=== PATIENT | male | born 1960 | race Caucasian/White ===

== ENCOUNTER 2020-08-25 20:45 | Emergency (ER) | payer MEDICARE, MEDICAID ==
--- NOTE | 2020-08-25 21:16 | XRAY Report ---
PROCEDURE: Chest 1 View X-Ray INDICATIONS: Chest Pain TECHNIQUE: One view of the chest was acquired. COMPARISON: Chest radiographs 06/04/2013 FINDINGS: Surgical changes and devices: None. Lungs and pleura: No pleural effusions or pneumothorax. Mildly increased lung markings at the medial lung bases bilaterally are nonspecific, but could represent an early or developing pneumonia in the appropriate clinical context. Mediastinum: Mediastinal contours appear normal. Heart size is normal. Bones and chest wall: No suspicious bony lesions. Overlying soft tissues appear unremarkable. Dege nerative changes are seen in the spine. IMPRESSION: Increased lung markings in the medial and bases could represent a mild or developing pneumonia or asp iration in the appropriate clinical setting. Reviewed by: Good Villavicencio MD on 08/25/2020 9:15 PM PDT Approved by: Good Villavicencio MD on 08/25/2020 9:15 PM PDT Station ID: [id number]
[2020-08-25 21:17] LABS: BASOPHILS % (AUTO) 0.5 %; EOSINOPHILS # (AUTO) 0.1 10^3/uL (0.0-0.7); EOSINOPHILS % (AUTO) 1.4 %; HCT - HEMATOCRIT 41.5 % (42.0-52.0); HGB - HEMOGLOBIN 13.7 g/dL (14.0-18.0); LYMPHOCYTES # (AUTO) 2.1 10^3/uL (1.5-3.5); LYMPHOCYTES % (AUTO) 33.1 %; MEAN CORPUSCULAR VOLUME 84.7 fL (80.0-94.0); MEAN PLATELET VOLUME 8.9 fL (7.4-11.4); MONOCYTES # (AUTO) 0.6 10^3/uL (0.0-1.0); NEUTROPHILS # (AUTO) 3.6 10^3/uL (1.5-6.6); NEUTROPHILS % (AUTO) 55.5 %; PLT - PLATELET COUNT 221 10^3/uL (130-450); RED CELL DISTRIBUTION WIDTH 13.2 % (12.0-15.0); WHITE BLOOD COUNT 6.4 x10^3/uL (4.8-10.8)
--- NOTE | 2020-08-25 21:25 | ED Physician Documentation ---
PD HPI CHEST PAIN - Stated complaint Stated Complaint: CP - Chief complaint Chief Complaint: Cardiac - History obtained from History obtained from: Patient - History of Present Illness Timing - onset: How many minutes ago (30), Today Timing - onset during: Rest Timing - details: Abrupt onset Pain level max: 10 Pain level now: 10 Quality: Pain Location: Left chest Radiation: Other (does not radiate) Improved by: Nothing Worsened by: Other (no exacerbating factors) Associated symptoms: No: Shortness of air, Diaphoresis, Nausea, Vomiting, Feeling faint / dizzy Similar symptoms before: Has not had sx before Recently seen: Not recently seen - Additional information Additional information: c/o rapid onset left-sided chest pain, onset 30 minutes ago while at rest at his father's house. Patient is visiting from [place], flew from [place] 1 month ago. He takes lisinopril and metoprolol although he ran out of his metoprolol 3 weeks ago. He says he does not have a cardiac history such as CAD, stents, or CABG. Review of Systems Constitutional: denies: Fever, Chills, Sweats Cardiac: reports: Chest pain / pressure. denies: Palpitations, Pedal edema, Calf pain Respiratory: reports: Reviewed and negative GI: reports: Reviewed and negative : reports: Reviewed and negative Skin: reports: Reviewed and negative Musculoskeletal: reports: Reviewed and negative Neurologic: reports: Reviewed and negative PD PAST MEDICAL HISTORY - Past Medical History Cardiovascular: Hypertension, High cholesterol, Angina Respiratory: None Endocrine/Autoimmune: None GI: Cholelithiasis : None HEENT: None Psych: Depression Musculoskeletal: None Derm: None - Past Surgical History Past Surgical History: Yes General: Cholecystectomy Ortho: Carpal Tunnel surgery - Present Medications Home Medications: Ambulatory Orders Medication Instructions Recorded Confirmed Ibuprofen [Motrin] 800 mg PO Q8H PRN #30 tablet 12/28/12 03/21/15 Metoprolol Succinate [Toprol Xl] 50 mg PO BID 06/04/13 03/21/15 Simvastatin [Zocor] 40 mg PO QPM 06/04/13 03/21/15 Tramadol HCl [Ultram] 50 mg PO DAILY 06/04/13 03/21/15 Valproic Acid [Stavzor] 1,500 mg PO DAILY 06/04/13 03/21/15 lisinopriL [Zestril] 20 mg PO DAILY 06/04/13 03/21/15 Amitriptyline [Elavil] 10 mg PO HS 07/24/13 03/21/15 Aspirin/Dipyridamole [Aggrenox 25 1 each PO BID 07/24/13 03/21/15 mg-200 mg Capsule] Atorvastatin [Lovastatin] 10 mg PO DAILY 07/24/13 03/21/15 Hydrochlorothiazide 25 mg PO DAILY 07/24/13 03/21/15 Omeprazole [PriLOSEC] 20 mg PO DAILY 07/24/13 03/21/15 Potassium Chloride 10 meq PO DAILY 07/24/13 03/21/15 Sertraline [Zoloft] 100 mg PO DAILY 07/24/13 03/21/15 Trazodone HCl 150 mg PO HS 07/24/13 03/21/15 Cyclobenzaprine [Flexeril] 10 mg PO TID PRN #20 tablet 03/14/15 03/21/15 Baclofen 10 mg PO TID PRN #20 tablet 03/21/15 Ketorolac [Toradol] 10 mg PO Q6H PRN #20 tablet 03/21/15 Tizanidine HCl [Zanaflex] 2 mg PO TID 03/21/15 03/21/15 methocarbamoL [Robaxin] 500 mg PO Q6H PRN #25 tablet 03/24/15 predniSONE [Deltasone] 40 mg PO DAILY 5 Days tablet 03/24/15 oxyCODONE/ACET 5/325 [Percocet 5 1 each PO Q4-6H PRN #12 tablet 03/27/15 mg/325 mg] Lidocaine Patch 5% [Lidoderm Patch] 1 each TOP DAILY PRN #10 patch 04/11/15 Metoprolol Tartrate [Lopressor] 50 mg PO BID #30 tablet 08/25/20 lisinopriL [Lisinopril] 10 mg PO DAILY #30 tablet 08/25/20 - Allergies Allergies/Adverse Reactions: Allergies Allergy/AdvReac Type Severity Reaction Status Date / Time paroxetine HCl * [From Paxil] Allergy Mild unknown Verified 08/25/20 20:59 clopidogrel bisulfate * Allergy unknown Verified 08/25/20 20:59 [From Plavix] fluoxetine HCl * AdvReac Intermediate Nausea Verified 08/25/20 20:59 [From Prozac] - Social History Does the pt smoke?: Yes Smoking Status: Current every day smoker Does the pt drink ETOH?: No Does the pt have substance abuse?: No - Immunizations Immunizations are current?: No Immunizations: TDAP >10years/unknown - POLST Patient has POLST: No PD ED PE NORMAL - Vitals Vital signs reviewed: Yes - General General: Alert and oriented X 3, No acute distress, Well developed/nourished - HEENT HEENT: Moist mucous membranes - Cardiac Cardiac: RRR, No murmur, No gallop, No rub - Respiratory Respiratory: No respiratory distress, Clear bilaterally - Abdomen Abdomen: Soft, Non tender - Derm Derm: Normal color, Warm and dry - Extremities Extremities: No edema Results - Vitals Vitals: Oxygen O2 Source Room air - EKG (time done) No standard instances Rate: Rate (enter#) (98) Rhythm: NSR, LAE [place]: Normal Intervals: Normal MS QRS: Normal Ischemia: Normal ST segments Computer interpretation: Disagree with computer (I do not see ST elevations nor depressions) - Labs Labs: Laboratory Tests 08/25/20 08/25/20 08/25/20 21:10 21:10 21:10 WBC 6.4 RBC 4.90 Hgb 13.7 L Hct 41.5 L MCV 84.7 MCH 28.0 MCHC 33.0 RDW 13.2 Plt Count 221 MPV 8.9 Neut # (Auto) 3.6 Lymph # (Auto) 2.1 [place] # (Auto) 0.6 Eos # (Auto) 0.1 Baso # (Auto) 0.0 Absolute Nucleated RBC 0.00 Nucleated RBC % 0.0 D-Dimer Sodium 139 Potassium 3.9 Chloride 102 Carbon Dioxide 28 Anion Gap 9.0 BUN 14 Creatinine 0.7 Estimated GFR (MDRD) 115 Glucose 107 H Calcium 9.0 Total Bilirubin 0.6 AST 22 ALT 23 Alkaline Phosphatase 77 Troponin I High Sens 10.2 Total Protein 7.7 Albumin 4.2 Globulin 3.5 Albumin/Globulin Ratio 1.2 Lipase 33 08/25/20 21:10 WBC RBC Hgb Hct MCV MCH MCHC RDW Plt Count MPV Neut # (Auto) Lymph # (Auto) [place] # (Auto) Eos # (Auto) Baso # (Auto) Absolute Nucleated RBC Nucleated RBC % D-Dimer < 200.0 L Sodium Potassium Chloride Carbon Dioxide Anion Gap BUN Creatinine Estimated GFR (MDRD) Glucose Calcium Total Bilirubin AST ALT Alkaline Phosphatase Troponin I High Sens Total Protein Albumin Globulin Albumin/Globulin Ratio Lipase - Rads (name of study) chest xray Radiology: Prelim report reviewed, See rad report PD MEDICAL DECISION MAKING - ED course Complexity details: reviewed results, re-evaluated patient, considered differential, d/w patient Departure - Departure Disposition: Home, Self Care Clinical Impression: Chest pain Qualifiers: Chest pain type: unspecified Qualified Code(s): R07.9 - Chest pain, unspecified Condition: Good Instructions: ED Chest Pain Atypical Unkn Cause Prescriptions: lisinopriL [Lisinopril] 10 mg PO DAILY #30 tablet Metoprolol Tartrate [Lopressor] 50 mg PO BID #30 tablet Comments: Contact your primary care provider to arrange for next available appointment. Discharge Date/Time: 08/25/20 23:12
[2020-08-25] MEDS ORDERED: KETOROLAC 30 MG/ML VIAL IVP STA (21:37)
[2020-08-25] MEDS ORDERED: METOPROLOL 5 MG/5 ML VIAL IVP STA (21:37)
[2020-08-25 21:38] LABS: ALBUMIN 4.2 g/dL (3.2-5.5); ALBUMIN/GLOBULIN RATIO 1.2 (1.0-2.2); BILIRUBIN,TOTAL 0.6 mg/dL (0.2-1.0); CREATININE 0.7 mg/dL (0.6-1.2); POTASSIUM 3.9 mmol/L (3.5-5.0); TOTAL PROTEIN 7.7 g/dL (6.7-8.2)
[2020-08-25 23:06] VITALS: BP 172/78
== END 2020-08-25 23:12 | disposition home or self-care (01) ==
LOC: ED 20:45
DX: R07.9 Chest pain, unspecified (principal); I10 Essential (primary) hypertension; F17.200 Nicotine dependence, unspecified, uncomplicated
CPT/HCPCS: 36415; 80053; 83690; 84484; 85025; 85379; 93005; 96374; 96375; 99284

== ENCOUNTER 2020-09-03 | Outpatient (CLI) | payer MEDICARE, MEDICAID | END 2020-09-03 23:17 | disposition critical access hospital (66) | CPT/HCPCS: A0425; A0429 ==

== ENCOUNTER 2020-09-03 23:27 | Emergency (ER) | payer MEDICARE, MEDICAID ==
[2020-09-03] MEDS ORDERED: METOPROLOL 5 MG/5 ML VIAL IVP STA (23:46)
[2020-09-03 23:52] LABS: BASOPHILS # (AUTO) 0.1 10^3/uL (0.0-0.1); BASOPHILS % (AUTO) 0.8 %; EOSINOPHILS # (AUTO) 0.2 10^3/uL (0.0-0.7); EOSINOPHILS % (AUTO) 2.3 %; HCT - HEMATOCRIT 40.7 % (42.0-52.0); HGB - HEMOGLOBIN 13.3 g/dL (14.0-18.0); LYMPHOCYTES # (AUTO) 2.6 10^3/uL (1.5-3.5); LYMPHOCYTES % (AUTO) 34.5 %; MEAN CORPUSCULAR HEMOGLOBIN 28.1 pg (27.0-31.0); MEAN CORPUSCULAR HGB CONC 32.7 g/dL (32.0-36.0); MEAN CORPUSCULAR VOLUME 85.9 fL (80.0-94.0); MONOCYTES # (AUTO) 0.8 10^3/uL (0.0-1.0); MONOCYTES % (AUTO) 10.1 %; NEUTROPHILS # (AUTO) 3.9 10^3/uL (1.5-6.6); NEUTROPHILS % (AUTO) 51.9 %; PLT - PLATELET COUNT 197 10^3/uL (130-450); RED BLOOD COUNT 4.74 10^6/uL (4.70-6.10); RED CELL DISTRIBUTION WIDTH 13.4 % (12.0-15.0); WHITE BLOOD COUNT 7.4 x10^3/uL (4.8-10.8)
[2020-09-04 00:04] LABS: ALBUMIN 3.9 g/dL (3.2-5.5); ALBUMIN/GLOBULIN RATIO 1.3 (1.0-2.2); BILIRUBIN,TOTAL 0.6 mg/dL (0.2-1.0); CREATININE 0.8 mg/dL (0.6-1.2); POTASSIUM 3.7 mmol/L (3.5-5.0)
--- NOTE | 2020-09-04 00:34 | ED Physician Documentation ---
PD HPI CHEST PAIN - Stated complaint Stated Complaint: CP - Chief complaint Chief Complaint: Cardiac - History obtained from History obtained from: Patient - History of Present Illness Timing - onset: Today Timing - onset during: Rest Timing - duration: Minutes Timing - details: Abrupt onset, Still present Quality: Sharp, Pain Location: Left chest Radiation: Left upper extremity Improved by: Rest Worsened by: Inspiration Associated symptoms: No: Shortness of air, Diaphoresis, Nausea, Vomiting, Feeling faint / dizzy, General Weakness, Palpitations, Cough Similar symptoms before: No diagnosis Recently seen: Not recently seen - Additional information Additional information: 60-year-old male with a history of hypertension and a family history of coronary artery disease has developed chest pain in the left chest. Pain is worse with inspiration and with movement. The patient also has some sensation to his left lower extremity of some pain or swelling. He is concerned about the possibility of a deep vein thrombosis in this extremity as he has had this previously. He states that he has been getting ready to have a treadmill test done as he has been having chest pains when he was in [place]. He is currently residing in [place] and is visiting here until this next Tuesday. He states he has not otherwise been ill. He has received his first dose of Covid vaccine. Review of Systems Constitutional: denies: Fever Eyes: denies: Decreased vision Ears: denies: Ear pain Cardiac: reports: Chest pain / pressure. denies: Palpitations Respiratory: denies: Dyspnea, Cough GI: denies: Abdominal Pain, Nausea, Vomiting : denies: Dysuria Skin: denies: Rash Musculoskeletal: reports: Extremity pain. denies: Neck pain, Back pain, Extremity swelling PD PAST MEDICAL HISTORY - Past Medical History Past Medical History: Yes Cardiovascular: Hypertension, High cholesterol, Angina Respiratory: None Endocrine/Autoimmune: None GI: Cholelithiasis : None HEENT: None Psych: Depression Musculoskeletal: None Derm: None - Past Surgical History Past Surgical History: Yes General: Cholecystectomy Ortho: Carpal Tunnel surgery - Present Medications Home Medications: Ambulatory Orders Medication Instructions Recorded Confirmed Ibuprofen [Motrin] 800 mg PO Q8H PRN #30 tablet 12/28/12 09/04/20 Simvastatin [Zocor] 40 mg PO QPM 06/04/13 09/04/20 Tramadol HCl [Ultram] 50 mg PO DAILY 06/04/13 09/04/20 Valproic Acid [Stavzor] 1,500 mg PO DAILY 06/04/13 09/04/20 lisinopriL [Zestril] 20 mg PO DAILY 06/04/13 09/04/20 Amitriptyline [Elavil] 10 mg PO HS 07/24/13 09/04/20 Aspirin/Dipyridamole [Aggrenox 25 1 each PO BID 07/24/13 09/04/20 mg-200 mg Capsule] Atorvastatin [Lovastatin] 10 mg PO DAILY 07/24/13 09/04/20 Hydrochlorothiazide 25 mg PO DAILY 07/24/13 09/04/20 Omeprazole [PriLOSEC] 20 mg PO DAILY 07/24/13 09/04/20 Potassium Chloride 10 meq PO DAILY 07/24/13 09/04/20 Sertraline [Zoloft] 100 mg PO DAILY 07/24/13 09/04/20 Trazodone HCl 150 mg PO HS 07/24/13 09/04/20 Cyclobenzaprine [Flexeril] 10 mg PO TID PRN #20 tablet 03/14/15 09/04/20 Baclofen 10 mg PO TID PRN #20 tablet 03/21/15 09/04/20 Ketorolac [Toradol] 10 mg PO Q6H PRN #20 tablet 03/21/15 09/04/20 Tizanidine HCl [Zanaflex] 2 mg PO TID 03/21/15 09/04/20 methocarbamoL [Robaxin] 500 mg PO Q6H PRN #25 tablet 03/24/15 09/04/20 predniSONE [Deltasone] 40 mg PO DAILY 5 Days tablet 03/24/15 09/04/20 oxyCODONE/ACET 5/325 [Percocet 5 1 each PO Q4-6H PRN #12 tablet 03/27/15 09/04/20 mg/325 mg] Lidocaine Patch 5% [Lidoderm Patch] 1 each TOP DAILY PRN #10 patch 04/11/15 09/04/20 Metoprolol Tartrate [Lopressor] 50 mg PO BID #30 tablet 08/25/20 09/04/20 lisinopriL [Lisinopril] 10 mg PO DAILY #30 tablet 08/25/20 09/04/20 - Allergies Allergies/Adverse Reactions: Allergies Allergy/AdvReac Type Severity Reaction Status Date / Time paroxetine HCl * [From Paxil] Allergy Mild unknown Verified 09/03/20 23:33 clopidogrel bisulfate * Allergy unknown Verified 09/03/20 23:33 [From Plavix] fluoxetine HCl * AdvReac Intermediate Nausea Verified 09/03/20 23:33 [From Prozac] - Social History Does the pt smoke?: Yes Smoking Status: Current every day smoker Does the pt drink ETOH?: No Does the pt have substance abuse?: No - Immunizations Immunizations are current?: No Immunizations: TDAP >10years/unknown - POLST Patient has POLST: No PD ED PE NORMAL - Vitals Vital signs reviewed: Yes (hypertensive ) - General General: Alert and oriented X 3, Well developed/nourished, Other (appears slightly anxious) - HEENT HEENT: Atraumatic, PERRL, EOMI - Neck Neck: Supple, no meningeal sign, No bony TTP - Cardiac Cardiac: RRR, No murmur - Respiratory Respiratory: No respiratory distress, Clear bilaterally, Other (mild tenderness to the chest wall laterally ) - Abdomen Abdomen: Soft, Non tender - Back Back: No CVA TTP, No spinal TTP - Derm Derm: Normal color, Warm and dry, No rash - Extremities Extremities: No deformity, No edema, No calf tenderness / cord - Neuro Neuro: Alert and oriented X 3, tavern keeper 2-12 intact, No motor deficit, No sensory deficit, Normal speech Eye Opening: Spontaneous Motor: Obeys Commands Verbal: Oriented GCS Score: 15 - Psych Psych: Normal mood, Normal affect Results - Vitals Vitals: Vital Signs - 24 hr 09/03/20 09/03/20 09/04/20 23:33 23:36 00:14 Temperature 36.6 C 36.6 C Heart Rate 100 93 Respiratory 16 18 16 Rate Blood Pressure 178/100 H 178/100 H O2 Saturation 96 95 09/04/20 09/04/20 09/04/20 01:16 02:35 02:43 Temperature Heart Rate 65 65 Respiratory 18 15 15 Rate Blood Pressure 142/97 H O2 Saturation 98 95 Oxygen O2 Source Room air - EKG (time done) 2332 Rate: Rate (enter#) (95) Rhythm: LAE Ischemia: Other (minimal ST elevation anterior leads) Compare to prior EKG: Unchanged from prior EKG (SPT 08-25-2020 no changes) Computer interpretation: Agree with computer - Labs Labs: Laboratory Tests 09/03/20 09/03/20 09/03/20 23:45 23:45 23:45 WBC 7.4 RBC 4.74 Hgb 13.3 L Hct 40.7 L MCV 85.9 MCH 28.1 MCHC 32.7 RDW 13.4 Plt Count 197 MPV 9.0 Neut # (Auto) 3.9 Lymph # (Auto) 2.6 [place] # (Auto) 0.8 Eos # (Auto) 0.2 Baso # (Auto) 0.1 Absolute Nucleated RBC 0.00 Nucleated RBC % 0.0 Sodium 140 Potassium 3.7 Chloride 105 Carbon Dioxide 27 Anion Gap 8.0 BUN 15 Creatinine 0.8 Estimated GFR (MDRD) 98 Glucose 121 H Calcium 9.0 Total Bilirubin 0.6 AST 17 ALT 19 Alkaline Phosphatase 62 Troponin I High Sens 10.6 Total Protein 7.0 Albumin 3.9 Globulin 3.1 Albumin/Globulin Ratio 1.3 Lipase 30 09/04/20 01:35 WBC RBC Hgb Hct MCV MCH MCHC RDW Plt Count MPV Neut # (Auto) Lymph # (Auto) [place] # (Auto) Eos # (Auto) Baso # (Auto) Absolute Nucleated RBC Nucleated RBC % Sodium Potassium Chloride Carbon Dioxide Anion Gap BUN Creatinine Estimated GFR (MDRD) Glucose Calcium Total Bilirubin AST ALT Alkaline Phosphatase Troponin I High Sens 10.7 Total Protein Albumin Globulin Albumin/Globulin Ratio Lipase - Rads (name of study) chest Radiology: Prelim report reviewed (Impression: 1. Probable mild bibasilar atel ectasis, right greater than left. No focal infiltrate or consolidation.), EMP read indepedently, See rad report duplex veins left Radiology: Prelim report reviewed (Impression: 1. Negative for left lower extremity deep vein thrombosis above the knee.), EMP read indepedently, See rad report PD MEDICAL DECISION MAKING - ED course Complexity details: reviewed old records, reviewed results, re-evaluated patient, considered differential, d/w patient ED course: 60-year-old male with a history of hypertension has developed left-sided chest pain that is pleuritic in nature. His work-up including 2 - troponins, an electrocardiogram, a chest x-ray and blood work is otherwise unremarkable. We did do duplex venous exam of the lower extremity as well which was negative. The patient's pleuritic chest pain was markedly improved with use of dexamethasone and Toradol. He is diagnosed with pleuritic chest pain and he is encouraged to follow-up with further evaluation when he returns home. Departure - Departure Disposition: 01 Home, Self Care Clinical Impression: Pleuritic chest pain Condition: Stable Instructions: ED Chest Pain Pleurisy Follow-Up: Your, doctor [Other] Discharge Date/Time: 09/04/20 02:53
[2020-09-04] MEDS ORDERED: KETOROLAC 30 MG/ML VIAL IVP STA (01:06)
[2020-09-04] MEDS ORDERED: DEXAMETHASONE 10 MG/ML VIAL PO STA (01:06)
[2020-09-04] MEDS ORDERED: CHERRY SYRUP 10 ML UDC PO ONE (01:06)
[2020-09-04 02:47] VITALS: BP 142/97
--- NOTE | 2020-09-04 07:12 | Ultrasound Report ---
PROCEDURE: Duplex Ext Veins Left INDICATIONS: swelling pain prior DVT TECHNIQUE: Real-time imaging, as well as color and pulse Doppler interrogation, were performed of the lower extr emity deep veins from the inguinal ligament to the popliteal fossa. COMPARISON: None. FINDINGS: The deep veins are normally compressible, and free of intraluminal thrombus. Color and pu lse Doppler demonstrate normal phasic intraluminal flow. There is normal augmentation response to di stal compression maneuver. IMPRESSION: No evidence of deep vein thrombosis involving the left lower extremity. Reviewed by: Loree Schultz MD, PhD on 09/04/2020 7:11 AM PDT Approved by: Loree Schultz MD, PhD on 09/04/2020 7:11 AM PDT Station ID: [id number]
--- NOTE | 2020-09-04 07:30 | XRAY Report ---
PROCEDURE: Chest 1 View X-Ray INDICATIONS: Chest pain TECHNIQUE: One view of the chest was acquired. COMPARISON: 08/25/2020 FINDINGS: Surgical changes and devices: None. Lungs and pleura: No pleural effusions or pneumothorax. Lungs are clear. Mediastinum: Mediastinal contours appear normal. Heart size is normal. Bones and chest wall: No suspicious bony lesions. Overlying soft tissues appear unremarkable. IMPRESSION: No acute cardiopulmonary disease process. Reviewed by: Loree Schultz MD, PhD on 09/04/2020 7:29 AM PDT Approved by: Loree Schultz MD, PhD on 09/04/2020 7:29 AM PDT Station ID: [id number]
== END 2020-09-04 02:53 | disposition home or self-care (01) ==
LOC: EDUNIT# → ED 23:27
DX: R07.81 Pleurodynia (principal); M79.662 Pain in left lower leg; I10 Essential (primary) hypertension; Z82.49 Family history of ischemic heart disease and other diseases of the circulatory system; Z79.82 Long term (current) use of aspirin; F17.200 Nicotine dependence, unspecified, uncomplicated
CPT/HCPCS: 36415; 71045; 80053; 83690; 84484; 85025; 93005; 93971; 96374; 96375; 99284; A9270